=== PATIENT | male | born 1935 | race Caucasian/White ===

== ENCOUNTER 2018-09-06 08:48 | Inpatient (IN) ==
[2018-09-06 08:57] VITALS: BMI 29.5
--- NOTE | 2018-09-06 09:22 | DR.URIAD ---
HPI Time Seen Time Seen by Provider: 09/06/18 09:12 PCP Primary Care Physician: KELLEY HPI Comment HPI Comment: 82YR OLD WHITE MALE WITH HISTORY OF DM, HYPERTENSION AND DYSLIPEDIEMIA IS IN ED WITH CHEST PAIN, COUGH AND CONGESTION. HIS ILLNESS STARTED 13 DAYS AGO AND WAS DIAGNOSE WITH PNEUMONIA AND PLACE ON MEDICATION 2DAYS LATER. HE IS PROGRESSIVELY GETTING WORSE EVEN WITH MEDICATION. HE HAVE DEVELOP INCREASING SWELLING OF LOWER EXTREMITIES. HE IS CONFUSE. Complaint Chief Complaint Doctors Comments: SOB, COUGH, CHEST PAIN TIMES 13 DAYS. Chief Complaint:: PATIENT HAS BEEN GOING TO THE URGENT CARE IN [place] FOR THE LAST WEEK AND THEY TOLD THEM HE HAD PNEUMONIA HAS BEEN TAKING MEDICATION FOR THAT AND FAMILY TOOK HIM BACK THIS MORNING AND THEY TOLD THEM THAT IT WAS WORSE AND HE NEEDED TO GO TO THE ER. FAMILY ALSO STATED THAT HE HAS CONFUSED AND HAVING SOME CHEST PAIN FROM THE COUGHING. Reviewed Nurses Notes Reviewed: Yes Source History Provided: Patient and Family Member Mode of Arrival Mode of Arrival: Ambulatory Timing Onset of Chief Complaint: 08/30/18 Context Recent Treated Infections: None History of Respiratory: None Quality Quality of Cough: Productive and White Rhinorrhea: Clear Shortness of Breath: Moderate Associated Signs and Symptoms Other Signs and Symptoms: Accessory Muscle Use, Cough, Nasal Symptoms, Shortness of Breath, URI and Wheeze PMH PMH Past Medical History: Yes Past Medical History: Diabetes, Dyslipidemia and Hypertension Past Medical History Comment: HEP Past Surgical History: Yes Surgical History: Abdominal Surgery, Appendectomy, Cholecystectomy and Other Past Surgical History Comment: PACEMAKER, EYE SURGERY Family History History of Family Medical Conditions: No Social History Type of Tobacco Use: Smokeless Does any household member use tobacco: No Alcohol Use: None Do you use any recreational Drugs:: No Lives With: Family Lives Where: Home infectious screening In the last 2 months have you had wt loss of >10#?: NO Have you had fever, night sweats or hemotysis?: No Have you traveled outside the country in the last 6 months?: No Isolation: Standard ROS Review of Systems Constitutional: Weakness and Fatigue Eyes: No Symptoms Reported ENTM: No Symptoms Reported Respiratoy: Productive Cough, Short of Breath and Wheezing Cardiovascular: Chest Pain and Edema Gastrointestinal/Abdominal: No Symptoms Reported Genitourinary: No Symptoms Reported Neurological: Weakness Musculoskeletal: No Symptoms Reported Integumentary: Other (EDEMA LOWER EXTREMITIES.) Hematologic/Lymphatic: Easy Bruising Endocrine: No Symptoms Reported Psychiatric: No Symptoms Reported All Other Systems: Reviewed and Negative PE Vital Signs Vitals: Temperature 98.6 F Pulse Rate [Right Brachial] 92 Pulse Rate 81 Respiratory Rate 20 Blood Pressure [Right Arm] 123/72 Blood Pressure [Left Arm] 135/99 Blood Pressure 161/90 O2 Sat by Pulse Oximetry 93 General Limitations: No Limitations General Appearance: Alert Head Head Exam: Normal Inspection Eyes Eye exam: Normal Appearance ENT ENT Exam: Normal External Ear Exam External Ear Exam: Normal External Inspection TM/Canal Exam: Bilateral: Normal Nose Exam: Normal Nose Exam Mouth Exam: Normal Inspection Throat Exam: Normal Inspection Neck Neck Exam: Normal Inspection Chest Chest Inspection: Symmetric Chest Wall Rise Respiratory Respiratory Exam: Respiratory Distress Respiratory Exam: Bilateral: Clear to Auscultation and Bilateral: Rales, Left: Clear to Auscultation and Left: Rales, Right: Clear to Auscultation and Right: Rales, Upper: Clear to Auscultation and Lower: Clear to Auscultation and Lower: Rhonchi Cardiovascular Cardiovascular Exam: Regular Rate and Normal Rhythm Abdominal Exam Abdominal Exam: Normal Inspection, Normal Bowel Sounds and Soft; negative Tend erness Back Back Exam: Normal Inspection Neurologic Neurological Exam: Alert, Oriented X3 and CN II-XII Intact Psychiatric Psychiatric Exam: Normal Affect and Normal Mood Skin Skin Exam: Dry MDM Differential Diagnosis Differential Diagnosis: Viral pharyngitis, Pneumonia, Sinsusitis and URI COURSE Treatment Treatment: SEE ORDERS. Consultation Consultation Comments: PATIENT DISCUSS WITH DR. SILVA. HE WILL ADMIT PATIENT. Education/Counseling Education/Counseling: Patient and Family Educated On: Diagnosis ROR Labs Reviewed Laboratory Results Reviewed?: Yes Result Diagrams: 09/09/18 04:18 09/08/18 09:50 Laboratory: 09/06/18 09:37 Blood Blood Culture - Preliminary 09/06/18 09:34 Blood Blood Culture - Preliminary WBC 11.5 X10^3/uL (3.6-10.0) H 09/09/18 04:18 RBC 4.58 X10^6/uL (4.7-6.0) L 09/09/18 04:18 Hgb 13.9 g/dL (13.5-18.0) 09/09/18 04:18 Hct 41.7 % (42.0-54.0) L 09/09/18 04:18 MCV 91.0 fL (80.0-100.0) 09/09/18 04:18 MCH 30.4 pg (27.0-34.0) 09/09/18 04:18 MCHC 33.4 g/dL (33.0-35.0) 09/09/18 04:18 RDW 13.5 % (11.6-16.5) 09/09/18 04:18 Plt Count 234 X10^3/uL (150.0-450.0) 09/09/18 04:18 MPV 10.6 fL (7.4-11.0) 09/09/18 04:18 Neut % (Auto) 70.0 % (42.0-75.0) 09/09/18 04:18 Lymph % (Auto) 16.3 % (21.0-51.0) L 09/09/18 04:18 [place] % (Auto) 10.0 % (0.0-13.0) 09/09/18 04:18 Eos % (Auto) 3.2 % (0.9-2.9) H 09/09/18 04:18 Baso % (Auto) 0.5 % (0.2-1.0) 09/09/18 04:18 Neut # (Auto) 8.1 x10^3/uL (2.2-4.8) H 09/09/18 04:18 Lymph # (Auto) 1.9 X10^3/uL (1.3-2.9) 09/09/18 04:18 [place] # (Auto) 1.2 x10^3/uL (0.3-0.8) H 09/09/18 04:18 Eos # (Auto) 0.4 x10^3/uL (0.0-0.2) H 09/09/18 04:18 Baso # (Auto) 0.1 X10^3/uL (0.0-0.1) 09/09/18 04:18 Absolute Nucleated RBC 0.0 /100WBC 09/09/18 04:18 D-Dimer 278 ng/mL (0-400) 09/06/18 09:34 Sodium 139 mmol/L (136-145) 09/08/18 09:50 Corrected Sodium 142 mmol/L (136-145) 09/08/18 09:50 Potassium 3.3 mmol/L (3.5-5.1) L 09/08/18 09:50 Chloride 102 mmol/L (98-107) 09/08/18 09:50 Carbon Dioxide 32.0 mmol/L (21-32) 09/08/18 09:50 BUN 25 mg/dL (7-18) H 09/08/18 09:50 Creatinine 1.58 mg/dL (0.70-1.30) H 09/08/18 09:50 Est GFR (MDRD) Af Amer 55 (>60) L 09/08/18 09:50 Est GFR (MDRD) Non-Af 45 (>60) L 09/08/18 09:50 Glucose 234 mg/dL (65-99) H 09/08/18 09:50 POC Glucose (mg/dL) 193 mg/dL (65-99) H 09/09/18 05:24 Lactic Acid 2.2 mmol/L (0.4-2.0) H 09/06/18 09:34 Calcium 8.9 mg/dL (8.5-10.1) 09/08/18 09:50 Corrected Calcium TNP 09/07/18 03:10 Magnesium 2.1 mg/dL (1.7-2.9) 09/06/18 15:25 Total Bilirubin 0.50 mg/dL (0.2-1.0) 09/07/18 03:10 AST 30 Units/L (15-37) 09/07/18 03:10 ALT 23 Units/L (12-78) 09/07/18 03:10 Alkaline Phosphatase 56 Units/L (46-116) 09/07/18 03:10 Creatine Kinase 656 Units/L (39-308) H 09/07/18 09:52 CK-MB (CK-2) 4.6 ng/mL (0-4.0) H* 09/07/18 09:52 CK/CKMB % Calc 0.7 % (<4) 09/07/18 09:52 Troponin I 0.06 ng/mL (0-1.5) 09/07/18 09:52 C-Reactive Protein 8.00 mg/L (0-3.0) H 09/06/18 09:34 B-Natriuretic Peptide 2490 pg/mL (0-79) H* 09/06/18 09:34 Total Protein 6.6 g/dL (6.4-8.2) 09/07/18 03:10 Albumin 3.5 g/dL (3.4-5.0) 09/07/18 03:10 Globulin 3.1 g/dL (2.5-4.5) 09/07/18 03:10 Albumin/Globulin Ratio 1.1 Ratio (1.1-2.1) 09/07/18 03:10 Specimen Type Clean catch urine 09/06/18 17:20 Urine Color Yellow (YELLOW) 09/06/18 17:20 Urine Appearance Clear (CLEAR) 09/06/18 17:20 Urine pH 5.0 (5.0 - 8.0) 09/06/18 17:20 Ur Specific [place] 1.015 (1.000-1.030) 09/06/18 17:20 Urine Protein Negative (NEGATIVE) 09/06/18 17:20 Urine Glucose (UA) 4+ (NEGATIVE) 09/06/18 17:20 Urine Ketones Negative (NEGATIVE) 09/06/18 17:20 Urine Occult Blood Negative (NEGATIVE) 09/06/18 17:20 Urine Nitrite Negative (NEGATIVE) 09/06/18 17:20 Urine Bilirubin Negative (NEGATIVE) 09/06/18 17:20 Urine Urobilinogen Normal (NORMAL) 09/06/18 17:20 Ur Leukocyte Esterase Negative (NEGATIVE) 09/06/18 17:20 XRAY XRAY Interpreted by: Radiologist XRAY Findings: REPORT ON RECORD NOTED AND DISCUSS WITH PATIENT AND HIS FAMILY. EKG Rate: 80 Rhythm: Paced Diagnosis Discharge Problem: CHF (congestive heart failure) Instructions Instructions: Shortness of Breath, Adult, [id number] Fatigue Heart Failure Action Plan Pleural Effusion Heart Failure, [id number] Heart Failure Exacerbation Form - Daily Weight Record Forms: Patient Portal
[2018-09-06 09:52] LABS: BASOPHILS % (AUTO) 0.4 % (0.2-1.0); EOSINOPHILS % (AUTO) 0.1 % (0.9-2.9); HEMATOCRIT 40.8 % (42.0-54.0); HEMOGLOBIN 13.5 g/dL (13.5-18.0); LYMPHOCYTES # (AUTO) 1.2 X10^3/uL (1.3-2.9); LYMPHOCYTES % (AUTO) 13.8 % (21.0-51.0); MEAN CORPUSCULAR HEMOGLOBIN 30.3 pg (27.0-34.0); MEAN CORPUSCULAR HGB CONC 33.2 g/dL (33.0-35.0); MEAN CORPUSCULAR VOLUME 91.5 fL (80.0-100.0); MEAN PLATELET VOLUME 10.5 fL (7.4-11.0); MONOCYTES # (AUTO) 0.6 x10^3/uL (0.3-0.8); MONOCYTES % (AUTO) 6.7 % (0.0-13.0); PLATELET COUNT 223 X10^3/uL (150.0-450.0); RED BLOOD COUNT 4.46 X10^6/uL (4.7-6.0); RED CELL DISTRIBUTION WIDTH 13.5 % (11.6-16.5); WHITE BLOOD COUNT 8.9 X10^3/uL (3.6-10.0)
[2018-09-06 10:04] LABS: ALANINE AMINOTRANSFERASE 24 Units/L (12-78); ALBUMIN 3.5 g/dL (3.4-5.0); ALKALINE PHOSPHATASE 60 Units/L (46-116); ASPARTATE AMINO TRANSFERASE 22 Units/L (15-37); BLOOD UREA NITROGEN 31 mg/dL (7-18); CALCIUM 8.7 mg/dL (8.5-10.1); CARBON DIOXIDE 25.7 mmol/L (21-32); CHLORIDE 101 mmol/L (98-107); COR NA(FOR HYPERGLY) 141 mmol/L (136-145); SODIUM 137 mmol/L (136-145); TOTAL PROTEIN 6.8 g/dL (6.4-8.2); eGFR NON BLACK RACES 41 (>60)
[2018-09-06 10:08] LABS: LACTIC ACID 2.2 mmol/L (0.4-2.0)
[2018-09-06 10:16] LABS: B-TYPE NATRIURETIC PEPTIDE 2490 pg/mL (0-79)
[2018-09-06] MEDS ORDERED: LASIX IVP ONE ×2 (10:18→10:40)
[2018-09-06] MEDS ORDERED: LASIX ONE ×2 (10:22→10:41)
[2018-09-06] MEDS ORDERED: NORCO 10/325 TAB PO ONE (10:29)
[2018-09-06] MEDS ORDERED: NORCO 10/325 TAB ONE (10:30)
--- NOTE | 2018-09-06 10:46 | RAD ---
HISTORY: Shortness of breath. Chest pain. Study: AP portable chest Comparison: None Findings: Minimal pulmonary vascular congestion is noted. Mild bibasilar atelectatic change/infiltrate is noted. Small pleural effusions are noted bilaterally. Mild cardiomegaly is present. Electronic cardiac device is present on the left and its leads appear to be in appropriate position. Patient is status post median sternotomy. No acute bony abnormalities are identified. IMPRESSION: 1. Mild cardiomegaly with minimal pulmonary vascular congestion. 2. Mild bibasilar atelectatic change/infiltrate and small effusions. This may be due to underlying congestive heart failure. Pneumonia cannot be excluded. Reported By:
[2018-09-06 13:39] LABS: CKMB % 1.1 % (<4); CREATINE KINASE MB 2.1 ng/mL (0-4.0); TROPONIN I 0.04 ng/mL (0-1.5)
[2018-09-06] MEDS ORDERED: MICRO K EXTEN CAP 10 MEQ PO PRN (15:57)
[2018-09-06] MEDS ORDERED: POTASSIUM CHL 60 MEQ/NS 0.45% 500 ML IV PRN (15:57)
[2018-09-06] MEDS ORDERED: POTASSIUM CHLORIDE LIQ 20 MEQ UDC PO PRN (15:57)
[2018-09-06] MEDS ORDERED: KLOR-CON PO PRN (15:57)
[2018-09-06] MEDS ORDERED: K-RIDER 10 MEQ/NS 100 ML 10 MEQ/100 ML BAG IV PRN (15:57)
[2018-09-06] MEDS ORDERED: POTASSIUM CHL 40 MEQ/NS 0.45% 500 ML IV PRN (15:57)
[2018-09-06] MEDS ORDERED: K-DUR TAB 20 MEQ PO PRN (15:57)
[2018-09-06] MEDS ORDERED: CATAPRES TAB 0.2 MG PO NR (16:20)
[2018-09-06 16:27] LABS: CKMB % 0.9 % (<4); CREATINE KINASE MB 2.7 ng/mL (0-4.0); TROPONIN I 0.05 ng/mL (0-1.5)
[2018-09-06] MEDS: HumuLIN R SUBCUT PRN ×2 (17:26→21:29)
[2018-09-06 17:55] LABS: BILIRUBIN,URINE NEGATIVE (NEGATIVE); BLOOD/HEMOGLOBIN,URINE NEGATIVE (NEGATIVE); GLUCOSE, URINE 4+ (NEGATIVE); KETONES,URINE NEGATIVE (NEGATIVE); LEUKOCYTE ESTERASE ,URINE NEGATIVE (NEGATIVE); NITRITES,URINE NEGATIVE (NEGATIVE); PROTEIN,URINE NEGATIVE (NEGATIVE); UROBILINOGEN,URINE NORMAL (NORMAL)
[2018-09-06 17:57] LABS: APPEARANCE,URINE CLEAR (CLEAR); COLOR,URINE YELLOW (YELLOW)
[2018-09-06] MEDS: LASIX IVP SCH (20:32)
[2018-09-06] MEDS ORDERED: MILK OF MAGNESIA PO PRN (20:51)
[2018-09-06] MEDS: NORCO 10/325 TAB PO PRN (21:23)
[2018-09-06] MEDS: COLACE CAP 100 MG PO SCH (21:24)
[2018-09-06] MEDS: COREG TAB 3.125 MG PO SCH (21:24)
[2018-09-06 21:52] LABS: CKMB % 0.8 % (<4); CREATINE KINASE MB 3.5 ng/mL (0-4.0); TROPONIN I 0.07 ng/mL (0-1.5)
[2018-09-07 03:20] LABS: BASOPHILS % (AUTO) 0.4 % (0.2-1.0); EOSINOPHILS % (AUTO) 0.4 % (0.9-2.9); HEMATOCRIT 36.9 % (42.0-54.0); HEMOGLOBIN 12.3 g/dL (13.5-18.0); LYMPHOCYTES # (AUTO) 1.3 X10^3/uL (1.3-2.9); LYMPHOCYTES % (AUTO) 11.2 % (21.0-51.0); MEAN CORPUSCULAR HEMOGLOBIN 30.2 pg (27.0-34.0); MEAN CORPUSCULAR HGB CONC 33.3 g/dL (33.0-35.0); MEAN CORPUSCULAR VOLUME 90.6 fL (80.0-100.0); MONOCYTES % (AUTO) 8.6 % (0.0-13.0); NEUTROPHILS # (AUTO) 9.1 x10^3/uL (2.2-4.8); NEUTROPHILS % (AUTO) 79.4 % (42.0-75.0); PLATELET COUNT 228 X10^3/uL (150.0-450.0); RED BLOOD COUNT 4.07 X10^6/uL (4.7-6.0); RED CELL DISTRIBUTION WIDTH 13.6 % (11.6-16.5); WHITE BLOOD COUNT 11.5 X10^3/uL (3.6-10.0)
[2018-09-07 03:55] LABS: ALANINE AMINOTRANSFERASE 23 Units/L (12-78); ALBUMIN 3.5 g/dL (3.4-5.0); ALKALINE PHOSPHATASE 56 Units/L (46-116); ASPARTATE AMINO TRANSFERASE 30 Units/L (15-37); BLOOD UREA NITROGEN 33 mg/dL (7-18); CALCIUM 8.5 mg/dL (8.5-10.1); CARBON DIOXIDE 30.5 mmol/L (21-32); CHLORIDE 102 mmol/L (98-107); CKMB % 0.7 % (<4); COR NA(FOR HYPERGLY) 141 mmol/L (136-145); CREATINE KINASE 604 Units/L (39-308); CREATININE 1.75 mg/dL (0.70-1.30); SODIUM 140 mmol/L (136-145); TOTAL PROTEIN 6.6 g/dL (6.4-8.2); TROPONIN I 0.06 ng/mL (0-1.5); eGFR NON BLACK RACES 40 (>60)
[2018-09-07 04:00] LABS: CREATINE KINASE MB 4.4 ng/mL (0-4.0)
--- NOTE | 2018-09-07 06:50 | RAD ---
HISTORY: Chest pain, shortness of breath Study: Chest AP portable Comparison: 09/06/2018 Findings: Patient is rotated to the left. There is a pacemaker present on the left. The patient is status post median sternotomy. The heart is enlarged. No definite congestive heart failure is present on today's examination. No definite acute alveolar infiltrates are identified. Bilateral pleural effusions are unchanged. IMPRESSION: Mild cardiomegaly without definite congestive heart failure No change bilateral pleural effusions Reported By:
[2018-09-07] MEDS: COREG TAB 3.125 MG PO SCH ×2 (09:08→20:44)
[2018-09-07] MEDS: NORCO 10/325 TAB PO PRN ×2 (09:09→15:50)
[2018-09-07] MEDS: LASIX IVP SCH ×2 (09:09→20:44)
[2018-09-07 11:16] LABS: CKMB % 0.7 % (<4); TROPONIN I 0.06 ng/mL (0-1.5)
[2018-09-07 11:18] LABS: CREATINE KINASE MB 4.6 ng/mL (0-4.0)
[2018-09-07] MEDS: HumuLIN R SUBCUT PRN ×3 (11:33→20:45)
[2018-09-07] MEDS: NICOTINE PATCH TD SCH (11:34)
[2018-09-07] MEDS ORDERED: AMBIEN PO PRN (18:27)
[2018-09-07] MEDS: COLACE CAP 100 MG PO SCH (20:44)
[2018-09-07] MEDS: SNACK - Diabetic Appropriate PO SCH (20:45)
[2018-09-07] MEDS: ZyPREXA TAB 5 MG PO SCH (20:45)
[2018-09-08] MEDS: HumuLIN R SUBCUT PRN ×4 (05:48→20:42)
[2018-09-08] MEDS: NORCO 10/325 TAB PO PRN ×3 (07:16→19:22)
[2018-09-08] MEDS: LASIX IVP SCH ×2 (08:39→20:14)
[2018-09-08] MEDS: ZyPREXA TAB 5 MG PO SCH (08:40)
[2018-09-08] MEDS: COREG TAB 3.125 MG PO SCH ×3 (08:41→20:15)
[2018-09-08] MEDS: NICOTINE PATCH TD SCH (09:00)
[2018-09-08 10:05] LABS: BASOPHILS # (AUTO) 0.1 X10^3/uL (0.0-0.1); BASOPHILS % (AUTO) 0.7 % (0.2-1.0); EOSINOPHILS # (AUTO) 0.3 x10^3/uL (0.0-0.2); HEMATOCRIT 41.7 % (42.0-54.0); HEMOGLOBIN 13.9 g/dL (13.5-18.0); LYMPHOCYTES # (AUTO) 1.1 X10^3/uL (1.3-2.9); LYMPHOCYTES % (AUTO) 11.4 % (21.0-51.0); MEAN CORPUSCULAR HEMOGLOBIN 30.4 pg (27.0-34.0); MEAN CORPUSCULAR HGB CONC 33.2 g/dL (33.0-35.0); MEAN CORPUSCULAR VOLUME 91.6 fL (80.0-100.0); MEAN PLATELET VOLUME 10.4 fL (7.4-11.0); MONOCYTES # (AUTO) 0.9 x10^3/uL (0.3-0.8); MONOCYTES % (AUTO) 9.9 % (0.0-13.0); NEUTROPHILS # (AUTO) 7.1 x10^3/uL (2.2-4.8); PLATELET COUNT 219 X10^3/uL (150.0-450.0); RED BLOOD COUNT 4.56 X10^6/uL (4.7-6.0); RED CELL DISTRIBUTION WIDTH 13.3 % (11.6-16.5); WHITE BLOOD COUNT 9.4 X10^3/uL (3.6-10.0)
[2018-09-08 10:08] LABS: CALCIUM 8.9 mg/dL (8.5-10.1); CREATININE 1.58 mg/dL (0.70-1.30)
[2018-09-08] MEDS: ROCEPHIN VIAL 1 GRAM IVP SCH (10:37)
--- NOTE | 2018-09-08 11:18 | CT ---
HISTORY: Fever Study: CT paranasal sinuses without contrast Comparison: None Technique: Multiple axial images of the paranasal sinuses were obtained without the administration of IV contrast. Coronal and sagittal reformats were performed and reviewed. Dose reduction techniques including automated exposure control (AEC) and adjustment of mA and kV were utilized. Findings: Images demonstrate minimal mucosal thickening involving the ethmoid air cells and maxillary sinuses bilaterally. The frontal and sphenoid sinuses are well aerated without evidence of significant mucosal thickening or air-fluid levels. The nasal septum is deviated to the right anteriorly and to the left posteriorly. The ostiomeatal complexes are patent bilaterally. The visualized portions of the posterior fossa and intracranial structures are unremarkable as well. IMPRESSION: 1. Minimal mucosal thickening of the ethmoid air cells and maxillary sinuses. Reported By:
[2018-09-08] MEDS: COLACE CAP 100 MG PO SCH (20:15)
[2018-09-08] MEDS: SNACK - Diabetic Appropriate PO SCH (20:19)
[2018-09-09] MEDS: NORCO 10/325 TAB PO PRN ×2 (02:36→08:40)
[2018-09-09 05:26] LABS: BASOPHILS # (AUTO) 0.1 X10^3/uL (0.0-0.1); BASOPHILS % (AUTO) 0.5 % (0.2-1.0); EOSINOPHILS # (AUTO) 0.4 x10^3/uL (0.0-0.2); EOSINOPHILS % (AUTO) 3.2 % (0.9-2.9); HEMATOCRIT 41.7 % (42.0-54.0); HEMOGLOBIN 13.9 g/dL (13.5-18.0); LYMPHOCYTES # (AUTO) 1.9 X10^3/uL (1.3-2.9); LYMPHOCYTES % (AUTO) 16.3 % (21.0-51.0); MEAN CORPUSCULAR HEMOGLOBIN 30.4 pg (27.0-34.0); MEAN CORPUSCULAR HGB CONC 33.4 g/dL (33.0-35.0); MEAN PLATELET VOLUME 10.6 fL (7.4-11.0); MONOCYTES # (AUTO) 1.2 x10^3/uL (0.3-0.8); NEUTROPHILS # (AUTO) 8.1 x10^3/uL (2.2-4.8); PLATELET COUNT 234 X10^3/uL (150.0-450.0); RED BLOOD COUNT 4.58 X10^6/uL (4.7-6.0); RED CELL DISTRIBUTION WIDTH 13.5 % (11.6-16.5); WHITE BLOOD COUNT 11.5 X10^3/uL (3.6-10.0)
[2018-09-09 05:41] LABS: ALANINE AMINOTRANSFERASE 24 Units/L (12-78); ALBUMIN 3.5 g/dL (3.4-5.0); ALKALINE PHOSPHATASE 61 Units/L (46-116); ASPARTATE AMINO TRANSFERASE 24 Units/L (15-37); BLOOD UREA NITROGEN 24 mg/dL (7-18); CALCIUM 8.9 mg/dL (8.5-10.1); CHLORIDE 100 mmol/L (98-107); COR NA(FOR HYPERGLY) 147 mmol/L (136-145); CREATININE 1.54 mg/dL (0.70-1.30); SODIUM 144 mmol/L (136-145); TOTAL PROTEIN 7.1 g/dL (6.4-8.2); eGFR NON BLACK RACES 46 (>60)
[2018-09-09] MEDS: HumuLIN R SUBCUT PRN ×2 (05:43→11:32)
[2018-09-09 08:08] VITALS: BP 123/79
[2018-09-09] MEDS: ROCEPHIN VIAL 1 GRAM IVP SCH (08:40)
[2018-09-09] MEDS: NICOTINE PATCH TD SCH (08:40)
[2018-09-09] MEDS: LASIX IVP SCH (08:40)
[2018-09-09] MEDS: COREG TAB 3.125 MG PO SCH (08:40)
[2018-09-09] MEDS ORDERED: ZyPREXA TAB 5 MG PO SCH (21:00)
== END 2018-09-09 11:50 | disposition home or self-care (01) | DRG 292 ==
LOC: ER 08:48 → MED/SURG 12:57
PROVIDERS: ADMIT Obstetrics & Gynecology Obstetrics; ATTEND Obstetrics & Gynecology Obstetrics
DX: I50.9 Heart failure, unspecified; R26.89 Other abnormalities of gait and mobility; E11.65 Type 2 diabetes mellitus with hyperglycemia; F03.90 Unspecified dementia, unspecified severity, without behavioral disturbance, psychotic disturbance, mood disturbance, and anxiety; R79.82 Elevated C-reactive protein (CRP); J90 Pleural effusion, not elsewhere classified; E78.2 Mixed hyperlipidemia; J30.89 Other allergic rhinitis; R07.89 Other chest pain; R13.12 Dysphagia, oropharyngeal phase; R94.31 Abnormal electrocardiogram [ECG] [EKG]; Z95.0 Presence of cardiac pacemaker
CPT/HCPCS: 36415; 70486; 71010; 71045; 80048; 80053; 81003; 82550; 82553; 83605; 83735; 83880; 84484; 85025; 85378; 86140; 87040; 92526; 92610; 93005; 93306; 94760; 96365; 96374; 97110; 97162; 97166; 99284; A4216; A4222; J0696; J1815; J1940